=== PATIENT | male | born 1960 | race Caucasian/White ===

== ENCOUNTER 2020-01-06 18:05 | Outpatient (REF) | payer OTHER, SELFPAY ==
--- NOTE | 2020-01-06 18:15 | MR_ITS ---
EXAMINATION: BRAIN MRI WITHOUT CONTRAST. CLINICAL INFORMATION: Occipital pain. Decreased vision both sides. Tinnitus. COMPARISON: No relevant prior imaging. TECHNIQUE: Multiplanar MR imaging of the brain was performed without contrast. FINDINGS: There are scattered nonspecific foci of T2 FLAIR signal hyperintensity within the periventricular white matter. No acute territorial infarct. No pathological magnetic susceptibility artifact. Intracranial vascular flow voids are grossly maintained. There is no intracranial mass effect or midline shift. Lateral and third ventricles are proportionate to the subarachnoid spaces. No hydrocephalus. Midline structures including the cervicomedullary junction are normal. No acute bone marrow signal changes. There is no mastoid middle ear effusion. No active paranasal sinus disease. Globes and orbits are symmetric. IMPRESSION: There are a few scattered chronic small vessel ischemic changes within the periventricular white matter. No evidence of acute territorial infarct or hemorrhage.
== END 2020-01-06 18:06 | disposition home or self-care (01) ==
LOC: HO.MRI 18:05
PROVIDERS: Visit Provider Internal Medicine Geriatric Medicine
DX: G44.83 Primary cough headache (principal); Z82.49 Family history of ischemic heart disease and other diseases of the circulatory system
CPT/HCPCS: 70551

== ENCOUNTER 2020-06-16 15:23 | Outpatient (REF) | payer OTHER, SELFPAY ==
--- NOTE | ~2020-06-16 | MR_ITS ---
EXAMINATION: MR ANGIOGRAPHY BRAIN WITHOUT CONTRAST CLINICAL INFORMATION: Patient states left eye and occipital pain when coughing. Evaluate for aneurysm. COMPARISON: None TECHNIQUE: 3-D [id number] MR angiography of the intracranial circulation was done with multiplanar reformatted reconstructions. Technical note: Images were degraded by motion artifact, which limits detection of very small aneurysms. FINDINGS: Anterior circulation: There is marked tortuosity of the high C1 segments of both cervical ICAs which are only partially imaged. The petrous, cavernous, ophthalmic and supraclinoid segments of both ICAs are normal in caliber with no definite aneurysm identified within the limitations of the study. The A1 and A2 segments are patent and normal in caliber. The anterior communicating artery is not well visualized. The M1 and M2 segments are patent and normal in caliber. There is a normal appearance to the MCA bifurcations. The posterior communicating arteries are not visualized. No definite aneurysms are identified. Posterior circulation: The V4 segments of the vertebral arteries are normal in caliber. The origins of the posterior inferior cerebellar arteries are not clearly visualized. The basilar artery is normal in caliber and configuration. The superior cerebellar and posterior cerebral arteries are patent. No posterior circulation aneurysms are identified. MR/MR angio head wo con IMPRESSION: Slightly limited study as motion artifact resulted in some degradation of the images. Very small aneurysms can be obscured by motion and therefore the study is limited in this regard. Within these limitations, no definite intracranial saccular aneurysms are identified and there is no evidence for major branch segmental occlusion, significant focal stenosis or ectasia.
== END 2020-06-16 15:24 | disposition home or self-care (01) ==
LOC: HO.MRI 15:23
PROVIDERS: PCP Internal Medicine Geriatric Medicine; Visit Provider Internal Medicine Geriatric Medicine
DX: R51.9 Headache, unspecified (principal); Z82.49 Family history of ischemic heart disease and other diseases of the circulatory system
CPT/HCPCS: 70544

== ENCOUNTER 2020-10-14 15:37 | Outpatient (REF) | payer OTHER, SELFPAY ==
--- NOTE | ~2020-10-14 | US_ITS ---
EXAMINATION: US EXTRACRANIAL CAROTID DUPLEX, BILATERAL CLINICAL INFORMATION: Amaurosis fugax. COMPARISON: None TECHNIQUE: Real-time ultrasound and Doppler techniques (integrating B-mode 2-D vascular images, Doppler spectral analysis and color-flow Doppler imaging) were utilized to interrogate the extracranial carotid arteries, the vertebral arteries and proximal subclavian arteries bilaterally. The degree of stenosis is determined by criteria similar to NASCET. FINDINGS: Right Side: 1. There is soft atherosclerotic plaque seen in the bifurcation/proximal ICA region. 2. The common carotid artery PSV proximally is 112 cm/s and distally 122 cm/s. 3. The proximal internal carotid artery velocities are 40 cm/s systolic and 15 cm/s diastolic. 4. The proximal external carotid artery PSV is 63 cm/s. 5. The vertebral artery shows antegrade flow. 6. The subclavian artery waveforms are normal. Left Side: 1. There is soft atherosclerotic plaque seen in the bifurcation/proximal ICA region. 2. The common carotid artery PSV proximally is 145 cm/s and distally 108 cm/s. 3. The proximal internal carotid artery velocities are 82 cm/s systolic and 8 cm/s diastolic. 4. The proximal external carotid artery PSV is 133 cm/s. 5. The vertebral artery shows antegrade flow. 6. The subclavian artery waveforms are normal. US/US carotid duplex BI IMPRESSION: 1. RIGHT: No hemodynamically significant stenosis. 2. LEFT: No hemodynamically significant stenosis. 3. Normal antegrade flow seen in both vertebral arteries.
== END 2020-10-14 15:38 | disposition home or self-care (01) ==
LOC: HO.HMGCX 15:37
PROVIDERS: PCP Internal Medicine Geriatric Medicine; Visit Provider Internal Medicine Geriatric Medicine
DX: G45.3 Amaurosis fugax (principal)
CPT/HCPCS: 93880

== ENCOUNTER 2021-03-31 12:43 | Outpatient (REF) | payer OTHER, SELFPAY ==
--- NOTE | ~2021-03-31 | XR_ITS ---
EXAMINATION: XR CHEST CLINICAL INFORMATION: Persistent cough, recent Covid COMPARISON: None TECHNIQUE: 2 views of the chest were obtained. FINDINGS: No significant abnormality is noted involving the heart, lungs, mediastinum, bony thorax or soft tissues. XR/XR chest 2V IMPRESSION: Unremarkable chest exam.
== END 2021-03-31 12:44 | disposition home or self-care (01) ==
LOC: HO.XRAY 12:43
PROVIDERS: PCP Internal Medicine Geriatric Medicine; Visit Provider Family Medicine
DX: R05.9 Cough, unspecified (principal)
CPT/HCPCS: 71046

== ENCOUNTER 2021-12-21 14:56 | Outpatient (REF) | payer OTHER, SELFPAY ==
--- NOTE | ~2021-12-21 | US_ITS ---
EXAMINATION: US VENOUS WITH DOPPLER UPPER EXTREMITY, LEFT CLINICAL INFORMATION: Swelling. History of recent IV. COMPARISON: None TECHNIQUE: Ultrasound of the upper extremity is performed using compression sonography and color and pulse Doppler flow with assessment of augmentation of flow. There is also imaging and Doppler assessment of the jugular and subclavian veins. Spectral analysis with color-flow imaging is performed. Findings: The left internal jugular, subclavian, axillary, brachial and basilic veins are patent. The cephalic vein is enlarged. There is thrombus seen in the cephalic vein suggestive of superficial thrombophlebitis. US/US venous duplex UE LT IMPRESSION: No DVT demonstrated in the left upper arm. Superficial thrombophlebitis in the left cephalic vein. Findings were communicated to Dr. Burnett by the surgical technologist at the completion of the exam.
== END 2021-12-21 14:57 | disposition home or self-care (01) ==
LOC: HO.US 14:56
PROVIDERS: PCP Internal Medicine Geriatric Medicine; Visit Provider Internal Medicine Geriatric Medicine
DX: I82.622 Acute embolism and thrombosis of deep veins of left upper extremity (principal)
CPT/HCPCS: 93971

== ENCOUNTER 2022-01-11 15:26 | Outpatient (REF) | payer OTHER, SELFPAY ==
--- NOTE | ~2022-01-11 | US_ITS ---
EXAMINATION: US VENOUS WITH DOPPLER UPPER EXTREMITY, LEFT CLINICAL INFORMATION: Follow-up superficial thrombophlebitis in the left cephalic vein COMPARISON: None TECHNIQUE: Ultrasound of the upper extremity is performed using compression sonography and color and pulse Doppler flow with assessment of augmentation of flow. There is also imaging and Doppler assessment of the jugular and subclavian veins. Spectral analysis with color-flow imaging is performed. FINDINGS: The left internal jugular, subclavian, axillary, brachial, basilic and basilic veins are patent. There is no evidence of DVT. There is still evidence of occlusive thrombus seen in the cephalic vein suggestive of superficial thrombophlebitis not appreciably changed from 12/21/2021 exam. US/US venous duplex UE LT IMPRESSION: No DVT demonstrated in the left upper extremity. Superficial thrombophlebitis in the left cephalic vein similar to November 2021 exam.
== END 2022-01-11 15:27 | disposition home or self-care (01) ==
LOC: HO.US 15:26
PROVIDERS: Visit Provider Internal Medicine Geriatric Medicine
DX: I82.612 Acute embolism and thrombosis of superficial veins of left upper extremity (principal)
CPT/HCPCS: 93971

== ENCOUNTER 2022-01-26 14:20 | Outpatient (REF) | payer OTHER, SELFPAY ==
--- NOTE | ~2022-01-26 | US_ITS ---
EXAMINATION: US VENOUS WITH DOPPLER UPPER EXTREMITY, LEFT CLINICAL INFORMATION: History of thrombus within the cephalic vein COMPARISON: 01/11/2022 TECHNIQUE: Ultrasound of the upper extremity is performed using compression sonography and color and pulse Doppler flow with assessment of augmentation of flow. There is also imaging and Doppler assessment of the jugular and subclavian veins. Spectral analysis with color-flow imaging is performed. FINDINGS: Respiratory variation, normal compression, and augmented flow are noted throughout the upper extremity including the axillary, brachial, cubital, and radial and ulnar veins. There is normal flow in the internal jugular and subclavian veins. There is redemonstration of partially occlusive thrombus within the cephalic vein. This appears to be partially resolving compared to prior. US/US venous duplex UE LT IMPRESSION: 1. No DVT demonstrated in the left upper extremity. 2. Partially occlusive thrombus within the left cephalic vein. This appears partially resolving compared to prior.
== END 2022-01-26 14:21 | disposition home or self-care (01) ==
LOC: HO.US 14:20
PROVIDERS: Visit Provider Internal Medicine Geriatric Medicine
DX: I82.612 Acute embolism and thrombosis of superficial veins of left upper extremity (principal)
CPT/HCPCS: 93971

== ENCOUNTER 2022-03-29 13:53 | Outpatient (REF) | payer OTHER, SELFPAY ==
--- NOTE | ~2022-03-29 | US_ITS ---
EXAMINATION: US VENOUS WITH DOPPLER UPPER EXTREMITY, LEFT CLINICAL INFORMATION: Previous DVT in cephalic vein. COMPARISON: Ultrasound venous duplex left upper extremity 01/26/2022. TECHNIQUE: Ultrasound of the upper extremity is performed using compression sonography and color and pulse Doppler flow with assessment of augmentation of flow. There is also imaging and Doppler assessment of the jugular and subclavian veins. Spectral analysis with color-flow imaging is performed. FINDINGS: Respiratory variation, normal compression, and augmented flow are noted throughout the upper extremity including the axillary, brachial, cubital, and radial and ulnar veins. There is normal flow in the internal jugular and subclavian veins. There is a partially-occlusive thrombus in the left superficial cephalic vein which appears to be slowly resolving. If the patient's symptoms progress, a followup ultrasound in 5 -7 days might be of value to exclude proximal propagation from a nonvisualized distal arm vein. US/US venous duplex UE LT IMPRESSION: 1. No DVT demonstrated in the left upper extremity. 2. There is a partially-occlusive thrombus in the left superficial cephalic vein which appears to be slowly resolving.
== END 2022-03-29 13:54 | disposition home or self-care (01) ==
LOC: HO.US 13:53
PROVIDERS: Visit Provider Internal Medicine Geriatric Medicine
DX: I82.612 Acute embolism and thrombosis of superficial veins of left upper extremity (principal)
CPT/HCPCS: 93971

== ENCOUNTER 2022-08-28 11:21 | Day surgery (SDC) | payer OTHER, SELFPAY ==
--- NOTE | 2022-08-25 13:23 | P.CONAN_ITS ---
Documented by User: Anai Valdovinos NP 08/25/22 13:24 HPI - Anesthesia Eval Consult details Narrative: 61yo M for Colonoscopy Eliquis for hx DVT [facility] Past Medical History Medical History (Updated 05/18/22 @ 14:19 by Stacy Womack RN) BPH (benign prostatic hyperplasia) Hx of blood clots Surgical History Surgical History (Updated 05/18/22 @ 14:21 by Stacy Womack RN) History of total right knee replacement Hx of appendectomy Hx of colonoscopy Hx of inguinal hernia repair Hx of rotator cuff surgery Hx of tonsillectomy Social History Social History Patient Tobacco Use Status: Never used Tobacco Are you DNR?: No Advance Directives: No Advance Directives Information Provided: Yes Nutrition Risks: No Nutritional Risk Meds Allergies Allergy/AdvReac Type Severity Reaction Status Date / Time No Known Allergies Allergy Verified 05/18/22 14:22 Home Medications Medication Instructions Recorded Confirmed Last Taken Type apixaban 5 mg tablet (Eliquis) 1 tab PO 05/18/22 Unknown History finasteride 5 mg tablet 1 tab PO DAILY 05/18/22 05/18/22 Unknown History tamsulosin 0.4 mg capsule 1 cap PO DAILY 05/18/22 05/18/22 Unknown History Exam Exam Date and Time: August 25, 2022 1323 Assessment and Plan Assessment Anesthesia Assessment: Chart Reviewed Documented by User: Guerda Horta MD 08/28/22 13:41 [facility] Past Medical History Medical History (Updated 05/18/22 @ 14:19 by Stacy Womack RN) BPH (benign prostatic hyperplasia) Hx of blood clots Family History Family history of problems with anesthesia: No Surgical History Surgical History (Updated 05/18/22 @ 14:21 by Stacy Womack RN) History of total right knee replacement Hx of appendectomy Hx of colonoscopy Hx of inguinal hernia repair Hx of rotator cuff surgery Hx of tonsillectomy History of Problems with Anesthesia: No Social History Social History Patient Tobacco Use Status: Never used Tobacco Are you DNR?: No Advance Directives: No Advance Directives Information Provided: Yes Nutrition Risks: No Nutritional Risk Meds Allergies Allergy/AdvReac Type Severity Reaction Status Date / Time No Known Allergies Allergy Verified 05/18/22 14:22 Home Medications Medication Instructions Recorded Confirmed Last Taken Type apixaban 5 mg tablet (Eliquis) 1 tab PO 05/18/22 Unknown History finasteride 5 mg tablet 1 tab PO DAILY 05/18/22 05/18/22 Unknown History tamsulosin 0.4 mg capsule 1 cap PO DAILY 05/18/22 05/18/22 Unknown History Exam Airway Mallampati Class: I TM Dist: >3cm Neck ROM: Full Loose/Missing/Broken Teeth: No Heart: rr Lungs: cta Assessment and Plan Assessment Anesthesia Assessment: Anesthesia Plan Discussed and Chart Reviewed Final Anesthetic Review Family History of Problems with Anesthesia: No History of Problems with Anesthesia: No NPO: Yes ASA Class: II Final Preanesthetic Review: No Changes in Pt Med Stat, Meds/Allgs Chart Reviewed, Consent Obtained/Reviewed and Anes Risks/Benef Reviewed Patient Risk: Low Procedure Risk: Low Anesthetic Plan Anesthetic Plan: MAC: Disposition: Standard PACU
--- OUTSIDE RECORDS SUMMARY | 2022-08-28 11:23 | XMS_ITS | Continuity of Care Document ---
Author Name Unknown Organization Wound Care Address [address] [place] [address]- Care Team Providers Care Baggage Security Checker Name Role Phone Name Matthew COTA Primary Care Physician [phone] Encounter [facility] ACCT R [id number] Date(s): 04/21/19 - 05/23/19 Wound Care [address] [place] [address]- [facility] Attending Physician: Nabeel Newell MD Admitting Physician: Nabeel Newell MD Referring Physician: Name Matthew COTA Allergies, Adverse Reactions, Alerts Substance Reaction Severity Status penicillins Active Grass Active Nuts 1 brazillian nuts Active Seeds pumpkin seeds Active Other Food Allergy eggplant Active 1brazillian nuts Immunizations Given and Recorded Vaccine Date Status Refusal Reason Meningococcal Conjugate Vaccine 1 11/07/05 Given Yellow Fever Vaccine 11/01/05 Given Poliovirus Vaccine, Inactivated 11/01/05 Given Hepatitis A Vaccine (oldterm) 2 11/01/05 Given Typhoid Vaccine, Inactivated 11/01/05 Given 1Admin Note: menactra 2Result Comment: incorrect vacciine Medications 2 cloth tape 2 cloth tape, See Instructions, # 1 each, Refills 12, Tot. Refills 12, Maintenance, daily dressingchanges bilat arms, 03/12/19 9:59:00 EST, Compound Start Date: 03/12/19 Status: Ordered acetaminophen 325 mg oral tablet 650 mg, By Mouth, Every 6 hours, Refills 0, Maintenance, 06/10/18 13:22:29 EDT Start Date: 06/10/18 Status: Ordered aspirin 162.5 mg oral capsule, extended release = 325 mg, By Mouth, 2 times a day, # 42 tablet, 0 Refills, Maintenance, 06/14/18 7:36:11 EDT, ER Capsule Start Date: 06/14/18 Stop Date: 07/05/18 Status: Ordered aspirin 325 mg oral delayed release tablet 325 mg, 1, tablet, By Mouth, 2 times a day, # 42 tablet, Refills 0, Tot. Refills 0, Maintenance, 06/14/18 7:37:51 EDT, Print Requisition Start Date: 06/14/18 Stop Date: 07/05/18 Status: Ordered Aspirin Tablet 325 mg, By Mouth, 2 times a day, Refills 0, Maintenance, 06/10/18 13:24:33 EDT Start Date: 06/10/18 Status: Ordered Baclofen By Mouth, 3 times a day, 0 Refills, Maintenance, 06/07/18 8:09:51 EDT Start Date: 06/07/18 Status: Ordered celecoxib 200 mg oral capsule = 200 mg, By Mouth, Daily, 0 Refills, Maintenance, 06/10/18 13:23:48 EDT, Capsule Start Date: 06/10/18 Status: Ordered docusate sodium 100 mg oral capsule 100 mg, 1, capsule, By Mouth, 2 times a day, Refills 0, Maintenance, 06/10/18 13:23:50 EDT Start Date: 06/10/18 Status: Ordered docusate sodium 100 mg oral capsule 100 mg, 1, capsule, By Mouth, 2 times a day, # 60 capsule, Refills 0, Tot. Refills 0, Maintenance, 06/14/18 7:39:48 EDT, Print Requisition Start Date: 06/14/18 Status: Ordered finasteride 5 mg oral tablet 1 tablet = 5 mg, By Mouth, Daily, # 7 tablet, 0 Refills, Maintenance, 06/14/18 8:08:51 EDT, Tablet Start Date: 06/14/18 Stop Date: 06/21/18 Status: Ordered Fish Oil By Mouth, 0 Refills, Maintenance, 06/07/18 8:10:54 EDT Start Date: 06/07/18 Status: Ordered Gauze Pad (4 X 4) See Instructions, # 1 pack/packet, Refills 12, Tot. Refills 12, Maintenance, daily dressing changesbilat arms, 03/12/19 9:59:00 EST, Compound Start Date: 03/12/19 Status: Ordered Gauze Roll (4 ) See Instructions, # 1 pack/packet, Refills 12, Tot. Refills 12, Maintenance, daily dressing changesbilat arms, 03/12/19 9:59:00 EST, Compound Start Date: 03/12/19 Status: Ordered Maalox Plus Liquid 30 mL, By Mouth, Every 4 hours, PRN Other, Heartburn, 0 Refills, Maintenance, 06/10/18 13:23:36 EDT, Suspension Start Date: 06/10/18 Status: Ordered Milk of Magnesia Liquid 30 mL, By Mouth, Daily, PRN Constipation, 0 Refills, Maintenance, 06/10/18 13:24:02 EDT, Suspension Start Date: 06/10/18 Status: Ordered MiraLax Powder 1 pack/packet = 17 Gm, By Mouth, Daily, 0 Refills, Maintenance, 06/10/18 13:24:12 EDT, Powder Start Date: 06/10/18 Status: Ordered pantoprazole 40 mg oral delayed release tablet 1 tablet = 40 mg, By Mouth, Daily, # 21 tablet, 0 Refills, Maintenance, 06/14/18 7:41:00 EDT, EC Tablet Start Date: 06/14/18 Stop Date: 07/05/18 Status: Ordered Proscar = 5 mg, By Mouth, Daily, 0 Refills, Maintenance, 11/20/17 8:36:30 EDT Start Date: 11/20/17 Status: Ordered rosuvastatin 10 mg oral tablet 1 tablet = 10 mg, By Mouth, Daily, # 30 tablet, 0 Refills, Maintenance, 11/20/17 8:15:41 EDT, Tablet Start Date: 11/20/17 Status: Ordered saccharomyces boulardii lyo 250 mg oral capsule = 250 mg, By Mouth, 2 times a day, 0 Refills, Maintenance, 06/14/18 7:32:26 EDT, Capsule Start Date: 06/14/18 Status: Ordered senna 187 mg oral tablet 1 tablet = 8.6 mg, By Mouth, Daily at bedtime, 0 Refills, Maintenance, 06/10/18 13:24:14 EDT, Tablet Start Date: 06/10/18 Status: Ordered tamsulosin 0.4 mg oral capsule 0.4 mg, 1, capsule, By Mouth, Daily, # 30 capsule, Refills 0, Maintenance, 11/20/17 8:15:31 EDT Start Date: 11/20/17 Status: Ordered tamsulosin 0.4 mg oral capsule 0.4 mg, By Mouth, Daily, # 7 capsule, Refills 0, Tot. Refills 0, Maintenance, 06/14/18 8:08:27 EDT,Print Requisition Start Date: 06/14/18 Stop Date: 06/21/18 Status: Ordered Social History Social History Type Response Smoking Status Never (less than 100 in lifetime) entered on: 07/01/18 Sex
--- OUTSIDE RECORDS SUMMARY | 2022-08-28 11:23 | XMS_ITS ---
Author Name Luis Joce Address [address] [place] [address] Organization [facility] Address [address] [place] [address] Care Team Providers Care Indoor Plant Technician Name Role Phone Joce Smith Unavailable [phone] PROBLEMS Type Condition ICD9-CM Code [id number] Code Onset Dates Condition Status SNOMED Code Problem Colon cancer screening Z12.11 Active 233410167 Problem History of colon polyps Z86.010 Active 963002176 Problem Abdominal pain, generalized R10.84 Active [id number] ALLERGIES No Known Allergies ENCOUNTERS Encounter Location Date Diagnosis [facility] [address] [place], [place] [id number] Aug, [facility] [address] [place] [phone] Aug, [facility] [address] [place] [phone] July, [facility] [address] [place] [phone] Jun, [facility] [address] [place] [phone] May, [facility] [address] [place] [phone] Apr, [facility] [address] [place] [phone] Apr, [facility] [address] [place] [phone] Mar, [facility] [address] [place] [phone] 11 Mar, 2022 [facility] [address] [place] [phone] 11 Mar, 2022 Colon cancer screening Z12.11 ; Abdominal pain, generalized R10.84 and History of colon polyps Z86.010 IMMUNIZATIONS No Known Immunizations SOCIAL HISTORY Qualifiers Date Never Smoker REASON FOR REFERRAL FUNCTIONAL STATUS PLAN OF CARE Activity Details VITAL SIGNS Weight 190 lbs 2022-04-05 Height 67.5 in 2022-04-05 BMI 29.32 kg/m2 2022-04-05 Temperature 97.8 degrees Fahrenheit Blood pressure systolic 000 mm Hg Blood pressure diastolic 00 mm Hg 2022-03 MEDICATIONS Medication Instructions Dosage Frequency Start Date End Date Duration Status Tamsulosin HCl 0.4 MG TAKE 1 CAPSULE BY MOUTH EVERY DAY 1/2 HOUR FOLLOWING THE SAME MEAL EACH DAY 90 Active Hyoscyamine Sulfate 0.125 MG Sublingual Every 4 to 6 hours as needed for abdominal cramps/discomfor t 1 or 2 12 Mar, 2022 30 days Active Eliquis 5 MG TAKE 1 TABLET BY MOUTH IN THE MORNING AND AT BEDTIME 30 Active Finasteride 5 MG TAKE 1 TABLET BY MOUTH EVERY DAY 30 Active PROCEDURES Procedure Date Ordered Result Body Site BP SCR NOT PRFRM REC REASON NOS Apr 05, 2022 TOBACCO NON-USER Apr 05, 2022 DOC MEDS VERIFIED W/PT OR RE Apr 05, 2022 COLORECTAL CA SCREEN DOC REV Apr 05, 2022 RESULTS No Results REASON FOR VISIT screening, hx polyps, needs to enroll in [facility], has health safety net, colon screening, history of polyps, patient has partial health safety net, no has health safety net, screening,hx polyps, COVID , new insurance ?, Patient presents today for abdominal pain. Insurance Providers Health Insurance Type Health Plan Insurance Address Health Plan Insurance Phone Health Plan Insurance Name Health Plan Coverage Dates Member ID Patient Relationship to Subscriber Patient Address Patient Phone Patient Name Patient Date of Subscriber ID Subscriber Name Subscriber Date of Group No [facility] [employer] Medical Instrument [facility] [address] [facility] [place] [id number] [facility] self GIGI BELCASTR O [id number] [employer] [place] [address] [place] [address] [place] self GIGI Daily [id number] [facility] [place] [address] [facility] self GIGI Daily [id number] [facility] [address] [address] [facility] [place] [address] [facility] self GIGI Daily [id number]
--- OUTSIDE RECORDS SUMMARY | 2022-08-28 11:23 | XMS_ITS | Continuity of Care Document ---
Author Name Unknown Organization Wound Care Address [address] [place] [address]- Care Team Providers Care Resolution Analyst Name Role Phone Name Matthew COTA Primary Care Physician Encounter [facility] ACCT R [id number] Date(s): 03/15/19 - 04/20/19 Wound Care [address] [place] [address]- [facility] Attending Physician: Nabeel Newell MD [...] EDT, Tablet Start Date: 06/10/18 Status: Ordered silver sulfADIAZINE 1% topical cream 1 application, Topically, Daily, for 30 days, apply to levy on R and L arms, # 400 Gm, 1 Refills, Acute 05/11/19 10:03:00 EST, 03/12/19 10:03:00 EST, Cream, [facility]/pharmacy #[id number], 1 application Topically Daily,x30 days,Instr:apply to levy on R and L ar... Start Date: 03/12/19 Stop Date: 05/11/19 Status: Ordered tamsulosin 0.4 mg oral capsule [...]
--- OUTSIDE RECORDS SUMMARY | 2022-08-28 11:23 | XMS_ITS | Continuity of Care Document ---
Author Name Unknown Organization [facility] Infectious Disease Address [address] [place] [address]- Care Team Providers Care Technical Education Teacher Name Role Phone Name Matthew COTA Primary Care Physician Encounter [facility] Date(s): 05/06/20 - 06/05/20 [facility] Infectious Disease [address] [place] [id number] Allergies, Adverse Reactions, Alerts Substance Reaction Severity [...] Note: menactra 2Result Comment: incorrect vacciine Medications finasteride 5 mg oral tablet 0 Refills, Maintenance, 03/08/20 8:10:00 EST, Partial fill upon patient request if the prescriptionis for a schedule II opioid drug. Start Date: 03/08/20 Status: Ordered rosuvastatin 10 mg oral tablet 0 Refills, Maintenance, 03/08/20 8:10:00 EST, Partial fill upon patient request if the prescriptionis for a schedule II opioid drug. Start Date: 03/08/20 Status: Ordered tamsulosin 0.4 mg oral capsule Refills 0, Maintenance, 03/08/20 8:10:00 EST, Partial fill upon patient request if the prescriptionis for a schedule II opioid drug. Start Date: 03/08/20 Status: Ordered Problem List Condition Effective Dates Status Health Status Inform ant Cough(Confirmed) Active Social History Social History Type Response Smoking Status Never (less than 100 in lifetime) entered on: 07/01/18 Sex Male
--- OUTSIDE RECORDS SUMMARY | 2022-08-28 11:23 | XMS_ITS | Continuity of Care Document ---
Author Name Unknown Organization [facility] ter Address [address] [place] [address]- Care Team Providers Care Blocker Automatic Name Role Phone Name Matthew COTA Primary Care Physician Encounter [facility] [id number] Date(s): 09/24/21 - 10/30/[address] [address] Attending Physician: Darron Ma MD Admitting Physician: Darron Ma MD Referring Physician: Pooja Melissa MD, [facility] Allergies, Adverse Reactions, Alerts Substance Reaction Severity Status penicillins Active Seeds pumpkin seeds Active Other Food Allergy eggplant Active Grass Active Nuts 1 brazillian nuts Active 1brazillian nuts Immunizations Given and Recorded Vaccine Date Status Refusal Reason Meningococcal Conjugate Vaccine 1 11/07/05 Given Yellow Fever Vaccine 11/01/05 Given Poliovirus Vaccine, Inactivated 11/01/05 Given Hepatitis A Vaccine (oldterm) 2 11/01/05 Given Typhoid Vaccine, Inactivated 11/01/05 Given 1Admin Note: menactra 2Result Comment: incorrect vacciine Medications Aerochamber See Instructions, # 1 each, Refills 0, Tot. Refills 0, Maintenance, Use with Flovent MDI inhaler, 09/02/21 15:26:00 EDT, Supply, 167, cm, 08/08/21 14:43:00 EDT, Height Start Date: 09/02/21 Status: Ordered finasteride 5 mg oral tablet 0 Refills, Maintenance, 03/08/20 8:10:00 EST, Partial fill upon patient request if the prescriptionis for a schedule II opioid drug. Start Date: 03/08/20 Status: Ordered Flovent HFA 110 mcg/inh inhalation aerosol 2 puffs, Inhalation, 2 times a day, use with spacer chamber rinse mouth and throat after use, [id number], # 1 each, 0 Refills, Maintenance, 08/31/21 12:46:00 EDT, Aerosol, [facility]/pharmacy #[id number], Partial fill upon patient request if the prescription is for a... Start Date: 08/31/21 Status: Ordered rosuvastatin 10 mg oral tablet 0 Refills, Maintenance, 03/08/20 8:10:00 EST, Partial fill upon patient request if the prescriptionis for a schedule II opioid drug. Start Date: 03/08/20 Status: Ordered Spacer Spacer, See Instructions, # 1 each, Refills 0, Tot. Refills 0, Maintenance, Spacer, 09/05/21 8:37:00 EDT, Supply, 167, cm, 08/08/21 14:43:00 EDT, Height Start Date: 09/05/21 Status: Ordered tamsulosin 0.4 mg oral capsule Refills 0, Maintenance, 03/08/20 8:10:00 EST, Partial fill upon patient request if the prescriptionis for a schedule II opioid drug. Start Date: 03/08/20 Status: Ordered Problem List Condition Effective Dates Status Health Status Inform ant Cough(Confirmed) Active Obese class II(Confirmed) Active Social History Social History Type Response Smoking Status Never (less than 100 in lifetime) entered on: 07/01/18 Sex Male
--- OUTSIDE RECORDS SUMMARY | 2022-08-28 11:23 | XMS_ITS | Continuity of Care Document ---
Author Name Unknown Organization [facility] ter Address [address] [place] [address]- Care Team Providers Care Floor Surfacer Name Role Phone Name Matthew COTA Primary Care Physician [phone] [place] [facility] [place] [id number] Date(s): 09/01/21 - 10/23/[address] [address] Attending Physician: Darron Ma MD Admitting Physician: Darron Ma MD Referring Physician: Pooja Melissa MD, [facility] Allergies, Adverse Reactions, Alerts Substance Reaction Severity [...] 0 Refills, Maintenance, 08/31/21 12:46:00 EDT, Aerosol, [id number], Partial fill upon patient request if [...]
--- OUTSIDE RECORDS SUMMARY | 2022-08-28 11:23 | XMS_ITS | Continuity of Care Document ---
Author Name Unknown Organization [facility] Address [address] [place] [address]- Care Team Providers Care Alcoholism Worker Name Role Phone Name Matthew COTA Primary Care Physician [place] [facility] [id number] Date(s): 04/23/19 - 05/03/19 [facility] [address] [place] [address] [facility] Attending Physician: Admtr, Bruno8 Admitting Physician: AdmtrMathieu Referring Physician: Admtr, Ar8 Allergies, Adverse Reactions, Alerts Substance Reaction Severity [...] 05/11/19 10:03:00 EST, 03/12/19 10:03:00 EST, [place], [facility]/pharmacy #[id number], 1 application Topically Daily,x30 days,Instr:apply to [...]
--- OUTSIDE RECORDS SUMMARY | 2022-08-28 11:23 | XMS_ITS | Continuity of Care Document ---
Author Name Unknown Organization [facility] Pulmonary edicine Address [address] [place] [address]- Care Team Providers Care Cell Attendant Helper Name Role Phone Name Matthew COTA Primary Care Physician [phone] Encounter [facility] Date(s): 08/31/21 - 09/30/21 [facility] Pulmonary Medicine [address] [place] [address] Allergies, Adverse Reactions, Alerts Substance Reaction Severity [...]
--- OUTSIDE RECORDS SUMMARY | 2022-08-28 11:23 | XMS_ITS | Continuity of Care Document ---
Author Name Unknown Organization [facility] Pulmonary M edicine Address [address] [place] [address]- Care Team Providers Care Boom Master Name Role Phone Name Matthew COTA Primary Care Physician [place] [facility] [place] Date(s): 09/01/21 - 10/01/21 [facility] Pulmonary Medicine [address] [place] [id number] Allergies, Adverse Reactions, Alerts Substance [...]
--- OUTSIDE RECORDS SUMMARY | 2022-08-28 11:23 | XMS_ITS | Continuity of Care Document ---
Author Name Unknown Organization [facility] Care Address [address] [place] [address]- Care Team Providers Care Equal Opportunity Director Name Role Phone Name Matthew COTA Primary Care Physician [phone] En[place] [facility] [facility] [id number] Date(s): 03/21/19 - 03/31/19 Wound Care [address] [place] [address]- [facility] Attending Physician: Admtr, Mathieu Admitting Physician: AdmtrMathieu Referring Physician: Admtr, Ar8 [...] 05/11/19 10:03:00 EST, 03/12/19 10:03:00 EST, [place], [facility]/pharmacy #[id number], 1 application Topically Daily,x30 [...]
--- OUTSIDE RECORDS SUMMARY | 2022-08-28 11:23 | XMS_ITS | Continuity of Care Document ---
Author Name Unknown Organization [facility] ter Address [address] [place] [address]- Care Team Providers Care Concrete Engineer Name Role Phone Name Matthew COTA Primary Care Physician En[place] [facility] [place] [facility] R [id number] Date(s): 10/29/21 - 12/04/[address] [address] Attending Physician: Jovan Alicea MD Admitting Physician: Jovan Alicea MD Referring Physician: Jovan Alicea MD Allergies, Adverse Reactions, Alerts Substance Reaction Severity Status penicillins Active Grass Active Nuts 1 brazillian nuts Active Other Food Allergy eggplant Active Seeds pumpkin seeds Active 1brazillian nuts Immunizations Given and Recorded [...] 0 Refills, Maintenance, 08/31/21 12:46:00 EDT, Aerosol, [facility]/pharmacy #[id number], Partial fill upon patient request [...] in lifetime) entered on: 07/01/18 Sex Male Care Team Personnel Name: Matthew Burnett MD Address: [address] [place] [address]
--- OUTSIDE RECORDS SUMMARY | 2022-08-28 11:23 | XMS_ITS | Continuity of Care Document ---
Author Name Unknown Organization [facility] Pulmonary M edicine Address [address] [place] [address]- Care Team Providers Care Master [employer] Name Role Phone Name Matthew COTA Primary Care Physician En[place] [facility] Date(s): 02/13/22 - 03/15/22 [facility] [address] [place] [id number] Attending Physician: Admtr, Ar8 Admitting Physician: Admtr, Ar8 Referring Physician: Admtr, Ar8 Allergies, Adverse Reactions, [...] opioid drug. Start Date: 03/08/20 Status: Ordered Flonase 50 mcg/inh nasal spray 1 sprays, Nares, Both, 2 times a day, # 16 Gm, 11 Refills, Maintenance, 02/13/22 14:15:00 EST, [place], [facility]/pharmacy #[id number], Partial fill upon patient request if the prescription is for a schedule II opioid drug., 1 sprays Nares, Both 2 times a day, 169,... Start Date: 02/13/22 Status: Ordered Flovent HFA 110 mcg/inh inhalation [...] Date: 03/08/20 Status: Ordered Problem List Condition Confirmation Course Effective Dates Status Health [facility] Informant Cough Confirmed Active Obese class I Confirmed Active Social History Social History Type Response Smoking Status Never (less than 100 in lifetime) entered on: 07/01/18 Sex Male Patient Care team information Care Team Personnel Name: Nickolas An RN Position: S RN Member Role: Primary Care Nurse Name: Darlene Brennan RN Position: S RN Member Role: Primary Care Nurse Name: Cherelle Suarez RN Position: S RN Member Role: Primary Care Nurse Name: Matthew Burnett MD Position: S Outreach Member Role: PCP Address: Address: [address] [place] [address] Name: Sandi Mackenzie RN Position: [facility] RN Member Role: Primary Care Nurse Care Team Related Persons Name: JIE CABRALES Name: HOLLY VOGT Address: [place] [address]
[2022-08-28 11:33] VITALS: BMI 29.3
[2022-08-28 11:53] VITALS: BP 125/72; PULSE 82; RESP 16; TEMP 36.7; O2SAT 97
[2022-08-28] MEDS: Gentamicin Sulfate/NaCl 80 MG/100 ML PIGGYBACK 100 MG IV (12:01)
[2022-08-28] MEDS: Lactated Ringers 1,000 ML 100 ML IVCONT (12:37)
[2022-08-28] MEDS: Ampicillin Sodium 2 GM in 0.9 % Sodium Chloride 100 ML IV (12:37)
--- NOTE | 2022-08-28 13:41 | P.CONAN_ITS ---
HPI - Anesthesia Eval Consult details Narrative: screening [facility] Past Medical History Medical History (Updated 05/18/22 @ 14:19 by Stacy Womack RN) BPH (benign prostatic hyperplasia) Hx of blood clots Family History Family history of problems with anesthesia: No Surgical History Surgical History (Updated 05/18/22 @ 14:21 by Stacy Womack RN) History of total right knee replacement Hx of appendectomy Hx of colonoscopy Hx of inguinal hernia repair Hx of rotator cuff surgery Hx of tonsillectomy History of Problems with Anesthesia: No Social History Social History Patient Tobacco Use Status: Never used Tobacco Are you DNR?: No Advance Directives: No Advance Directives Information Provided: Yes Nutrition Risks: No Nutritional Risk Meds Allergies Allergy/AdvReac Type Severity Reaction Status Date / Time No Known Allergies Allergy Verified 05/18/22 14:22 Active Medications: Current Medications Lactated Ringer's (Lr) 1,000 mls @ 100 mls/hr IVCONT .Q10H ESPINOZA Last Admin: 08/28/22 12:37 Dose: 100 mls/hr Sodium Biphosphate/Sodium Phosphate (Sodium Phosphate,Beadle-Dibasic 133 Ml Enema) 133 ml IA ONCE PRN PRN Reason: Poor Colonoscopy Prep Results Sodium Biphosphate/Sodium Phosphate (Sodium Phosphate,Beadle-Dibasic 133 Ml Enema) 133 ml IA ONCE PRN PRN Reason: Poor Colonoscopy Prep Results Home Medications Medication Instructions Recorded Confirmed Last Taken Type apixaban 5 mg tablet (Eliquis) 1 tab PO 05/18/22 Unknown History finasteride 5 mg tablet 1 tab PO DAILY 05/18/22 05/18/22 Unknown History tamsulosin 0.4 mg capsule 1 cap PO DAILY 05/18/22 05/18/22 Unknown History Exam Exam Date and Time: August 28, 2022 134 Height,Weight and Vital Signs: Height 5 ft 7.5 in Weight 86.183 kg Last Vital Signs Temp 98.1 F 08/28/22 11:53 Pulse 82 08/28/22 11:53 Resp 16 08/28/22 11:53 BP 125/72 08/28/22 11:53 Pulse Ox 97 08/28/22 11:53 O2 Del Method Room Air 08/28/22 11:53 Airway Mallampati Class: II TM Dist: >3cm Neck ROM: Full Loose/Missing/Broken Teeth: No Heart: rr Lungs: cta Assessment and Plan Final Anesthetic Review Family History of Problems with Anesthesia: No History of Problems with Anesthesia: No NPO: Yes ASA Class: II Final Preanesthetic Review: No Changes in Pt Med Stat, Meds/Allgs Chart Reviewed, Consent Obtained/Reviewed and Anes Risks/Benef Reviewed Patient Risk: Low Procedure Risk: Low Anesthetic Plan Anesthetic Plan: MAC: Disposition: Standard PACU
--- NOTE | 2022-08-28 15:14 | PM.OP ---
Brief Operative Note Date of Service: 08/28/22 Pre-op diagnosis: Screening Post-op diagnosis: other (Polyps) Procedure: Colonoscopy to the cecum and TI with bx/removal of cecal polyp, and hot snare polypectomy in rectum Surgeon: Joce Smith Anesthesia: MAC Was an Bail Attacher used for this Procedure?: No Estimated blood loss (mL): 2.0 Pathology: other (A. Cecal polyp B. Rectal polyp) Condition: stable Disposition: PACU
[2022-08-28 15:15] VITALS: BP 96/45; PULSE 91; RESP 18; TEMP 36.7; O2SAT 93
[2022-08-28 15:30] VITALS: BP 119/81; PULSE 73; RESP 18; TEMP 36.7; O2SAT 97
--- NOTE | 2022-08-29 01:40 | OP_ITS ---
DATE OF SERVICE: 08/28/2022 SURGEON: Joce Smith MD INDICATIONS: The patient presents for evaluation of colorectal cancer screening and personal history of colon polyps. Full consent was obtained from him for this, including risks of bleeding and perforation. PREOPERATIVE DIAGNOSIS: POSTOPERATIVE DIAGNOSIS: PROCEDURE PERFORMED: Colonoscopy to the cecum and terminal ileum with biopsy and removal of polyp and hot snare polypectomy. ESTIMATED BLOOD LOSS: COMPLICATIONS: ANESTHESIA: Medication used: Monitored anesthesia care. ASSISTANTS: SPECIMENS: PREOPERATIVE DIAGNOSES: Colorectal cancer screening and personal history of colon polyps. POSTOPERATIVE DIAGNOSES: Colorectal cancer screening, personal history of colon polyps, diverticulosis, and internal hemorrhoids. DESCRIPTION OF PROCEDURE: The patient was placed in the left lateral decubitus position. The digital rectal exam revealed no abnormalities. The Olympus video pediatric colonoscope was entered into the rectum and advanced easily to the cecum. Once in the cecum, I did identify cecal pouch with appendiceal orifice and a normal-appearing ileocecal valve. The terminal ileum was cannulated and appeared normal. The scope was withdrawn back in the colon. The entire cecum and ileocecal valve were well visualized and appeared normal other than an approximately 4 mm polyp in the cecum, which was biopsied and completely removed with the cold biopsy forceps. The scope was then slowly withdrawn assessing all mucosal surfaces carefully. Preparation was excellent. In the mid-rectum was an approximately 8-10 mm grossly adenomatous polyp, which was removed by hot snare polypectomy and recovered by suction. The polypectomy site appeared clean without any sign of residual polyp or bleeding. I did not visualize any other polyps, colitis, nor angiodysplasia. There was a mild amount of sigmoid diverticulosis. In the rectum, scope was retroflexed visualizing internal hemorrhoids. The scope was straightened and withdrawn from the patient. He tolerated the procedure well and was returned to the recovery area in stable condition. IMPRESSION: 1. Colon polyps. 2. Diverticulosis. 3. Internal hemorrhoids. PLAN: The results of the pathology will be checked. I would recommend a repeat colonoscopy in 5 years. He was advised not to use any aspirin and NSAIDs for 1 week. He will otherwise see me again on a p.r.n. basis. MD CARL Hoffman/TIA / [id number] DEONDRE
== END 2022-08-28 16:10 | disposition home or self-care (01) ==
PROVIDERS: PCP Internal Medicine Geriatric Medicine; Visit Provider Internal Medicine
PROC: 0DJD8ZZ Inspection of Lower Intestinal Tract, Via Natural or Artificial Opening Endoscopic (ICD-10-PCS; CPT 45378; principal; 2022-08-28 13:00)
DX: Z12.11 Encounter for screening for malignant neoplasm of colon (principal); Z86.010 Personal history of colon polyps; D12.0 Benign neoplasm of cecum; D12.8 Benign neoplasm of rectum; K57.30 Diverticulosis of large intestine without perforation or abscess without bleeding; K64.8 Other hemorrhoids; N40.0 Benign prostatic hyperplasia without lower urinary tract symptoms; Z86.718 Personal history of other venous thrombosis and embolism; Z79.01 Long term (current) use of anticoagulants; Z79.899 Other long term (current) drug therapy; Z98.890 Other specified postprocedural states
CPT/HCPCS: 45385; 45380; 88305; J0290; J1580

== ENCOUNTER 2023-05-04 12:14 | Outpatient (REF) | payer OTHER, SELFPAY ==
--- NOTE | ~2023-05-04 | XR_ITS ---
EXAMINATION: XR FINGER, RIGHT CLINICAL INFORMATION: Right ring finger, fourth digit injury . COMPARISON: None available. TECHNIQUE: 3 views of the right fourth digit. FINDINGS: Severe degenerative changes in the first carpometacarpal and metacarpophalangeal joints with joint space narrowing, hypertrophic change and remodeling of subjacent articular surfaces. Degenerative changes with hypertrophic change in scattered IP joints. There is a displaced intra-articular avulsion fracture at the dorsal aspect of the base of the distal tuft of the fourth digit with soft tissue swelling. XR/XR finger RT min 2V IMPRESSION: 1. Displaced intra-articular avulsion fracture at the dorsal aspect of the base of the distal tuft of the fourth digit with soft tissue swelling. 2. Severe degenerative changes in the first carpometacarpal and metacarpophalangeal joints. This study was presented today 05/07/2023 at 2:20 PM for interpretation. PSA staff will provide results to referring provider at this time.
--- NOTE | ~2023-05-04 | XR_ITS ---
EXAMINATION: XR TEMPOROMANDIBULAR JOINT, BILATERAL CLINICAL INFORMATION: Temporomandibular joint/mandibular pain. Injury. COMPARISON: None available. TECHNIQUE: Abida as well as lateral open and closed mouth views of the bilateral temporomandibular joint. FINDINGS: There are no fractures or dislocations. No bone, joint or soft tissue abnormality is demonstrated. Normal anterior translation of the mandibular condyles and open-mouth imaging. The visualized paranasal sinuses and mastoid air cells appear clear. No abnormal soft tissue calcification. XR/XR TMJ BI IMPRESSION: No acute fracture or dislocation. Normal anterior translation of the mandibular condyles.
== END 2023-05-04 12:15 | disposition home or self-care (01) ==
LOC: HO.XRAY 12:14
PROVIDERS: Absent Provider Internal Medicine Geriatric Medicine; PCP Internal Medicine Geriatric Medicine; Visit Provider Family Medicine
DX: M79.644 Pain in right finger(s) (principal); R68.84 Jaw pain
CPT/HCPCS: 70330; 73140

== ENCOUNTER 2024-04-30 07:34 | Outpatient (REF) | payer OTHER, SELFPAY ==
--- OUTSIDE RECORDS SUMMARY | 2024-04-30 07:36 | XMS_ITS | Encounter Summary ---
Author Organization [employer] [facility] Address [address] [place] [address] [address] [place] [address] Care Team Providers Care Gas Plant Worker Name Role Phone Name, Matthew COTA Primary Care Provider [phone] Encounter Details Date Type Department Care Team ([facility] Contact Info) Description 03/28/2022 Abstract [facility] MEDICINE [address] [place] [phone] Name, MD Matthew [address] [place] [id number] Social History Tobacco Use Types Packs/Day Years Used Date Smoking Tobacco: Never Assessed Sex and Gender Information Value Date Recorded Sex Assigned at Male 01/23/2022 10:35 AM EDT Legal Sex Male 10:35 AM EDT Gender Identity Male 01/23/2022 10:35 AM EDT Sexual Orientation Straight 01/23/2022 10 :35 AM EDT COVID-19 Exposure Response Date Recorded In the last 10 days, have yo u been in contact with someone who was confirmed or suspected to have Coronavirus/COVID-19? No / Unsure 03/28/2022 8:41 AM EST documented as of this encounter Plan of Treatment Upcoming Encounters Date Type Department Care Team (Late st Contact Info) Description 05/08/2024 2:00 PM EST Clinical Support [facility] MEDICINE [address] [place] [address] [phone] documented as of this encounter Visit Diagnoses Not on filedocumented in this encounter Care Teams Gas Plant Worker Relationship Specialty Start Date End Date Name, MD Matthew [address] [place] [phone] PCP - General Family Medicine 10/21/18 documented as of this encounter
--- OUTSIDE RECORDS SUMMARY | 2024-04-30 07:36 | XMS_ITS | Encounter Summary ---
Author Organization [employer] Address [address] [facility] [address] [place] [address] Care Team Providers Care Agricultural Engineering Technician Name Role Phone Name, Matthew COTA Primary Care Provider Reason for Visit * Reason Comments Med Change Request Encounter Details Date Type Department Care Team ([facility] st Contact Info) Description 04/29/2024 Refill [facility] MEDICINE [address] [place] [address] Name, MD Matthew [address] [place] [address] Social History Tobacco Use Types Packs/Day Years Used Date Smoking Tobacco: Never Passive Smoke Exposure: Never Smokeless Tobacco: Never Alcohol Use Standard Drinks/Week Comments Yes 0 (1 standard drink = 0.6 oz pur e alcohol) social Depression Answer Date Recorded Patient Health Questionnaire-9 Score 0 04/29/2024 Patient Health Questionnaire-9 Score 0 04/29/2024 Last PHQ-9: Questionnaire Data Not on file 0 04/29/2024 Housing Stability Answer Date Recorded What is your housing situation today? I have jorge l minaya 04/29/[address] you li ve. Do you have problems with any of the following? None of the above 04/29/2024 Food Insecurity Answer Date Recorded Within the past 12 months, y ou worried that your food would run out before you got money to buy more: Never True 04/29/2024 Within the past 12 months,th e food you bought just didn't last and you didn't have enough money to get more: Never True 06/2024 Transportation Answer Date Recorded In the past 12 months, has l ack of transportation kept you from medical appts, meetings, work or from getting things needed for daily living? No 04/29/2024 Utilities Answer Date Recorded In the past 12 months, has t he electric, gas, oil or water company threatened to shut off services in your home? No 04/29/2024 Depression Answer Date Recorded Patient Health Questionnaire-2 Score 0 04/29/2024 Internet Access Answer Date Recorded Internet Access Q1 Yes 04/29/2024 Internet Access Q2 Not on file 04/29/2024 Sex and Gender Information Value Date Recorded Sex Assigned at Male 01/23/2022 10:35 AM EDT Legal Sex Male 10:35 AM EDT Gender Identity Male 01/23/2022 10:35 AM EDT Sexual Orientation Straight 01/23/2022 10 :35 AM EDT documented as of this encounter Plan of Treatment Upcoming Encounters Date Type Department Care Team (Late st Contact Info) Description 05/08/2024 2:00 PM EST Clinical Support [facility] MEDICINE [address] [place] [address] documented as of this encounter Visit Diagnoses Not on filedocumented in this encounter Additional Health Concerns Assessment Noted Time PHQ-9 Depression Total Score: 0 04/29/19 25 2:14 PM EST documented as of this encounter Care Teams Agricultural Engineering Technician Relationship Specialty Start Date End Date Name, MD Matthew [address] [place] [address] PCP - General Family Medicine 10/21/18 documented as of this encounter
--- OUTSIDE RECORDS SUMMARY | 2024-04-30 07:36 | XMS_ITS | Data Portability ---
Author Organization [facility], [address] Address [address] [place] [address] Care Team Providers Care Telecommunication Operator Name Role Phone NAME, JEREMY Primary Care Provider [phone] Assessment No assessment recorded. Plan of Treatment Reminders Order Date Submit Date Provider Last Modified By Organization Details Last Modified Time Details Appointments None recorded. Lab rapid flu (A+B) 2022 023 [email or web address] [facility] [address], [address] [place], [address], 18:19:47 Referral None recorded. Procedures None recorded. Surgeries None recorded. Imaging None recorded. Medication Orders oseltamivir 75 mg capsule 2022 023 [id number], [address] [place], [address], 3 18:19:49 Patient TargetsNo targets recorded. Patient Instructions Encounter Date Encounter Id Patient Instructions Last Modified By Organization Details Last Modified Time 04/18/2022 [id number] influenza (flu): care instructions [email or web address] Not available 04/18/2022 18:19:47 Based on your Presentation and Exam you are being diagnosed with Influenza. Your rapid Flu test was Negative Influenza is caused by a virus that is highly contagious. If you have any family member that have been exposed they typically will start to show symptoms in 48-72 hours. I am going to prescribe you Tamiflu - which has to be started within 48 hours to be effective. If it is started after that time it typically can cause GI symptoms. If family member show symptoms, remember that treatment has to be started within 48 hours. You are considered contagious for 5 Days after the start of the fever. You should isolate and not go to work, sports, events during this quarantine period. The following are my recommendations to help with your symptoms while your body fights this infection: 1. Take Ibuprofen or Tylenol if you do not have any allergies to these medications. If you take a blood thinner you should not take NSAIDS like Ibuprofen. These medication will help with the inflammation in your respiratory tract which should help the cough. 2. Do not take any decongestants at this time because this will dry out that tract too much. If you have a lot of nasal congestion you can try nasal decongestants, but I would not take them more than 5 days. 3. Use a humidifier or add a cup of water by your bed. Sometimes if our sleeping environment is too dry this can lead to cough 4. Salt Water Gargles 5. Saline nasal spray is helpful. 6. Would recommend taking a antihistamine to help with the congestion. 7. Clean Surfaces regularly and try to stay isolated from family members. I would be seen again if you develop any of the following. 1. Cough develops last longer than 3 weeks. 2. Develop shortness of breath or wheezing. 3. Severe Headache with vision changes 4. Stiff Neck 5. Fever does not reduce a few points with Ibuprofen or Tylenol. I would go immediately to the Emergency Room if you develop: 1. Chest Pain 2. Severe Shortness of breath 3. Coughing up Blood. [email or web address] Not available 04/18/2022 18:11:03 Reason for Referral None Reported. Results Created Date Observation Date Name Description Value Unit Range Abnormal Flag Note LastModifiedBy Organization Detail LastModifiedTime 04/18/1904/18/2022 rapid flu (A+B) Unknown Analyte Normal = Negati ve Not Available [address] [place], [address], 04/18/2022 17:10:51 04/18/1904/18/2022 rapid flu (A+B) Unknown Analyte Normal = Negati ve Not Available [address] [place], [address], 04/18/2022 17:10:51 04/18/1904/18/2022 rapid flu (A+B) Unknown Analyte negati ve Not Available [address] [place], [address], 04/18/2022 17:10:51 04/18/19 23 04/18/2022 rapid flu (A+B) Unknown Analyte negati ve Not Available [address] [place], [address], 04/18/2022 17:10:51 Result Notes None recorded. Problems No Known Problems Procedures Surgical History Date Name Laterality Status Provider Name and Address Organization Details Recorded Time hernia repair completed ROMEO DRINKWINE [place] - [facility] 04/18/2022 17:07:19 Appendectomy completed ROMEO DRINKWINE PA - [facility] 04/18/2022 17:07:26 tonsillectomy completed ROMEO DRINKWINE PA - [facility] 04/18/2022 17:07:34 total knee replacement completed ROMEO DRINKWINE PA - [facility] 04/18/2022 17:07:41 Imaging Results None recorded. Procedure Notes None recorded. Medical Equipment None Reported. Allergies No known drug allergies Medications Name Sig Start Date Stop Date Status Note LastModified by Organization Details LastModified Time nystatin 100,000 unit/mL oral suspension TAKE 5 ML BY MOUTH 4 TIMES A DAY FOR 7 DAYS SWISH AND SWALLOW active Not Available Not Available No t Available azithromycin 250 mg tablet TAKE 2 TABLETS BY MOUTH TODAY, THEN TAKE 1 TABLET DAILY FOR 4 DAYS active Not Available Not Available No t Available fluconazole 200 mg tablet TAKE 1 TABLET (200 MG) BY MOUTH IN THE MORNING FOR 14 DAYS. active Not Available Not Available No t Available prednisolone acetate 1 % eye drops,suspen suma INSTILL 1 DROP INTO BOTH EYES THREE TIMES A DAY FOR 3 WEEKS THEN D/C active Not Available Not Available No t Available tamsulosin 0.4 mg capsule TAKE 1 CAPSULE BY MOUTH EVERY DAY 1/2 HOUR FOLLOWING THE SAME MEAL EACH DAY active Not Available Not Available No t Available benzonatate 100 mg capsule TAKE 1 CAPSULE BY MOUTH 3 TIMES EVERY DAY NEEDED FOR COUGH active Not Available Not Available No t Available hyoscyamine 0.125 mg disintegrati ng tablet PLEASE SEE ATTACHED FOR DETAILED DIRECTIONS active Not Available Not Available N ot Available oseltamivir 75 mg capsule TAKE 1 CAPSULE BY MOUTH TWICE A DAY FOR 5 DAYS active Not Available Not Available No t Available ketoconazole 2 % topical cream APPLY TO AFFECTED AREA EVERY DAY active Not Available Not Available No t Available finasteride 5 mg tablet TAKE 1 TABLET BY MOUTH EVERY DAY active Not Available Not Available No t Available naproxen 500 mg tablet TAKE 1 TABLET (500 MG) BY MOUTH WITH BREAKFAST AND WITH EVENING MEAL active Not Available Not Available No t Available diazepam 5 mg tablet TAKE 1 TABLET BY MOUTH DIRECTED TAKE 30 MIN PRIOR TO PROCEDURE active Not Available Not Available No t Available oxycodone 5 mg tablet PLEASE SEE ATTACHED FOR DETAILED DIRECTIONS active Not Available Not Available N ot Available Flovent HFA 110 mcg/actuatio n aerosol inhaler INHALE 2 PUFFS BY MOUTH 2 TIMES A DAY, USE WITH SPACER CHAMBER RINSE MOUTH AND THROAT AFTER USEE active Not Available Not Available N ot Available finasteride active Not Available Not A vailable Not Available tamsulosin active Not Available Not Av ailable Not Available Antiseptic Skin Cleanser (chlorhexidi ne) 4 % liquid CLEAN FEET TWICE A DAY active Not Available Not Available Not Available Navi Ramos [facility] spacer USE DIRECTED active Not Available Not Available No t Available Eliquis 5 mg tablet TAKE 1 TABLET BY MOUTH IN THE MORNING AND AT BEDTIME active Not Available Not Available No t Available Xiidra 5 % eye drops in a dropperette INSTILL 1 DROP INTO BOTH EYES TWICE A DAY active Not Available Not Available Not Available Vitals Date Recorded Body height Body mass index (BMI) Body weight Pain severity - 0-10 verbal numeric rating [Score] - Reported Body temperature Respiratory rate Heart rate Oxygen saturation Oxygen saturation in Arterial blood by Pulse oximetry Systolic blood pressure Diastolic blood pressure Provider Name and Address Organization Details Last Updated DateTime 3 170.18 cm 29.8 kg/m2 58448.5 5 g 8 97 [degF] 16 /min 64 /min 99 % 99 % 130 mm[Hg] 80 mm[Hg] ROMEO NESBITT PA - [facility] 3 17:10:44 Social History Question Answer Notes LastModified by Organizat ion Details LastModified Time Tobacco Smoking Status Never Smoker ROMEO DRINKWINE null, [place] - [facility] 04/18/2022 17:08:11 What Is Your Level Of Alcohol Consumption? Occasional Information not available 04/18/2022 Do You Use Any Illicit Or Recreational Drugs? No Information not available 04/18/2022 Have You Recently Traveled Abroad? No Information not available 04/18/2022 Do You Or Have You Ever Used Any Other Forms Of Tobacco Or Nicotine? No Information not available 04/18/2022 Sex: Unknown Functional Status None recorded. Mental Status None recorded. Family History Relationship Description Onset Age of this Age Resolved Age Notes LastModified by Organization Details LastModified Time Father Malignant neoplastic disease [email or web address] Not available 04/18 17:07:57 Medical History No medical history recorded. Immunizations Vaccine Type Date Status Note Provider Nam e and Address Organization Details Recorded Time Influenza, MDCK, quadrivalent, PF 01/23/2019 completed ROMEO DRINKWINE null, [place] - [facility] 04/18/2022 17:08:18 MMR 1961 completed ROMEO DRINKWINE null, [place] - [facility] 04/18/2022 17:08:18 zoster recombinant 02/01/2019 completed ROMEO DRINKWINE null, [place] - [facility] 04/18/2022 17:08:18 Tdap 11/30/2020 completed ROMEO DRINKWINE null, [place] - [facility] 04/18/2022 17:08:18 Hep B, unspecified formulation 1960 completed ROMEO DRINKWINE null, [place] - [facility] 04/18/2022 17:08:18 Past Encounters Encounter ID Performer Location Encounter Start Date Encounter Closed Date Diagnosis/Indication Diagnosis SNOMED-CT Code Diagnosis ICD10 Code Diagnosis Note [id number] [address] [facility] [place] [address] 05/23/2017 08:04:06 05/23/2017 08:37:59 [id number] [facility] [id number] [address] [place] [address] 04/18/2022 16:08:22 04/18/2022 18:22:40 Influenza-like symptoms 416568355 R68.89 Health Concerns Section Related Observation LastModified by Organization Detai ls LastModified Time None Recorded Concern Status LastModified by Organization Details LastModified Time None Recorded Advance Directives Directive None Recorded Payers Encounter Date Sequence Insurance Name Policy Number Policy Quiroz Covered Member ID Quiroz Member ID Guarantor Name 05/23/2017 1 [facility] [place] [id number] Vic Pickardtim [id number] Vic Landa 04/18/2022 1 [facility] ([facility] [place] Vic Pickardtim [id number] Vic Mellytim Notes Date Note Type Note Provider Name and Address Organization Details Recorded Time 04/18/2022 text/html FeverReported bypatient.source of patient informationPatient arrived at Urgent Care ambulatory Severity:worsening Modifying Factors:nothing gives relief Associated Symptoms:no rash; no cold symptoms;lethargy;weakn essNotes:Sudden onset last night around 9 pm - headache, bodyaches, fatigue, weakness, nausea. The patient states feels exactly like he did last year when he had influenza. No known exposures. He reports that he is hoping to get antivirals. The patient denies any CP or SOB. Does have bad joint pain. Denies rashes. No sore throat or ear pain. DEISY SANDOVAL [address] [place], [address], [place] - [facility] 04/18/2022 18:22:01
--- OUTSIDE RECORDS SUMMARY | 2024-04-30 07:36 | XMS_ITS | Clinical Summary ---
Author Organization [employer] Address [address] [place] [address] [address] [place] [address] Care Team Providers Care Tufting Machine Operator Name Role Phone Name, Matthew COTA Primary Care Provider [phone] Allergies Active Allergy Reactions Criticality Noted Date Comments [place] Oil 12/12/2022 Other reaction(s): brazillian nuts brazillian nuts Gramineae Pollens 08/22/2022 Other 12/12/2022 Other reaction(s): eggplant Penicillin G 01/28/2019 Penicillins 08/22/2022 Pumpkin Seed Unknown 11/30/2020 Medications omega-3 (Fish Oil) 1000 MG capsule OTC per patient Active loratadine (Claritin) 10 MG tablet Take 10 mg by mouth 1 (one) time each day. 04/23/19 22 Active Xiidra 5 % solution Administer 1 drop into both eyes in the morning and at bedtime. 07/22/19 22 Active Flovent HFA 110 MCG/ACT inhaler INHALE 2 PUFFS BY MOUTH 2 TIMES A DAY, USE WITH SPACER CHAMBER RINSE MOUTH AND THROAT AFTER USEE 09/01/19 22 Active terbinafine (LamISIL AT) 1 % cream Apply topically 2 times daily. 15 g 2 08/23/19 23 Active Blood Pressure kit Use once a day 1 kit 03/09/20 23 Active azithromycin (Zithromax) 250 MG tabletIndicati ons:Bronchitis Take 2 tablets (500 mg) by mouth in the morning for 1 day, THEN 1 tablet (250 mg) in the morning for 4 days. 6 tablet 04/17/19 24 Active albuterol 108 (90 Base) MCG/ACT inhaler TAKE 2 PUFFS BY MOUTH EVERY 4 TO 6 HOURS NEEDED 8.5 g 1 10/09/19 24 Active Perfluorohexyl octane (Miebo) 1.338 GM/ML solution Administer 1 drop into affected eye(s) 4 times daily. 3 mL 04/29/19 25 025 Active tamsulosin (Flomax) 0.4 MG 24 hr capsule TAKE 1 CAPSULE BY MOUTH EVERY DAY 1/2 HOUR FOLLOWING THE SAME MEAL EACH DAY 30 capsule 11 04/29/19 25 Active finasteride (Proscar) 5 MG tabletIndicati ons:Benign prostatic hyperplasia, unspecified whether lower urinary tract symptoms present Take 1 tablet by mouth every day 90 tablet 1 04/29/19 25 Active sildenafil (Viagra) 50 MG tablet Take 1 tablet (50 mg) by mouth if needed each day for erectile dysfunction. 10 tablet 04/29/19 25 025 Active naproxen (Naprosyn) 500 MG tablet Take 1 tablet (500 mg) by mouth 2 times daily. 60 tablet 04/29/19 25 025 Active Diclofenac Sodium 1 % gelIndications :PE (physical exam), routine apply (2G) by topical route 2 times every day to the affected area(s) 50 g 2 04/29/19 25 Active valACYclovir (Valtrex) 500 MG tabletIndicati ons:H/O herpes labialis Take 1 tablet (500 mg) by mouth 2 times daily for 5 days. 10 tablet 1 04/29/19 25 025 Active carisoprodol (Soma) 350 MG tablet Take 1 tablet (350 mg) by mouth 2 times daily for 15 days. 30 tablet 04/29/19 25 025 Active fluticasone (Flonase) 50 MCG/ACT nasal spray Administer 2 sprays into each nostril Once per day. Shake gently. Before first use, prime pump. After use, clean tip and replace cap. 16 g 1 04/29/19 25 025 Active nystatin (Mycostatin) 319298 UNIT/ML suspension Take 1 mL (100,000 Units) by mouth 4 times daily for 15 days. 60 mL 04/29/19 25 025 Active valACYclovir (Valtrex) 500 MG tablet TAKE 1 TABLET BY MOUTH TWICE A DAY 03/23/20 21 025 Discontinued(Re order (will not trigger notification to Pharmacy)) fluticasone (Flonase) 50 MCG/ACT nasal spray Administer 2 sprays into each nostril in the morning. Shake gently. Before first use, prime pump. After use, clean tip and replace cap. 16 g 1 08/23/19 23 025 Discontinued(Re order (will not trigger notification to Pharmacy)) Diclofenac Sodium 1 % gelIndications :Closed displaced fracture of distal phalanx of right ring finger, initial encounter apply (2G) by topical route 2 times every day to the affected area(s) 50 g 2 05/04/19 24 025 Discontinued(Re order (will not trigger notification to Pharmacy)) tamsulosin (Flomax) 0.4 MG 24 hr capsule TAKE 1 CAPSULE BY MOUTH EVERY DAY 1/2 HOUR FOLLOWING THE SAME MEAL EACH DAY 30 capsule 11 07/10/19 24 025 Discontinued(Re order (will not trigger notification to Pharmacy)) finasteride (Proscar) 5 MG tabletIndicati ons:Benign prostatic hyperplasia, unspecified whether lower urinary tract symptoms present TAKE 1 TABLET BY MOUTH EVERY DAY 90 tablet 1 03/11/20 24 025 Discontinued(Re order (will not trigger notification to Pharmacy)) Active Problems Problem Noted Date Diagnosed Date Oral candidiasis 12/12/2022 ABUNDIO (obstructive sleep apnea) 12/12/2022 Biceps tendon rupture, left, subsequent encounte r 09/04/2022 Erythrocytosis 03/17/2022 Joint pain 03/17/2022 Unspecified fracture of fift h metacarpal bone, right hand, initial encounter for closed fracture 09/20/2021 Hyperlipidemia 06/21/2018 History of total knee arthroplasty 06/21/2018 Benign prostatic hyperplasia without urinary obs truction 06/21/2018 Chronic low back pain 06/21/2018 Resolved Problems Problem Noted Date Diagnosed Date Resolved Date Class 1 obesity 08/22/2022 12/12/2022 Neuropathic pain 03/17/2022 12/12/2022 Headache 03/17/2022 12/12/2022 Cough 03/17/2022 12/12/2022 Amaurosis fugax 03/17/2022 03/28/2022 Other slipping, tripping and stumbling without falling, initial encounter 09/22/202112/12 Prosthetic joint infection 07/30/2018 0 12/12/2022 Encounters Date Type Department Care Team Description 04/29/2024 2:00 PM EST Office Visit [facility] [address] [place] [id number] NameMatthew MD PE (physical exam), routine (Primary Dx); Elevated blood pressure reading; History of Lyme disease; Dry eye syndrome, unspecified laterality; Benign prostatic hyperplasia, unspecified whether lower urinary tract symptoms present; H/O herpes labialis; Acute midline low back pain without sciatica 04/29/[address] [address] Matthew Burnett MD 04/16/2024 Patient Outreach [address] [address] Matthew Burnett MD Pre-visit Planning ((Unable to complete screening patient was occupied) 03/08/[address] [address] Patricia Abrams, LIFE SUPPORT TECHNICIAN Benign prostatic hyperplasia, unspecified whether lower urinary tract symptoms present from Last 3 Months Immunizations Name Administration Dates Next Due Hep A, Unspecified 11/01/2005 Hep B, Unspecified 1960 IPV 11/01/2005 Influenza Injectable Quadriv alant Preservative Free IIV4 MDCK 01/23/2019 MMR 1961 Meningococcal ACWY, unspecified 11/07/2005 Tdap 11/30/2020 Typhoid, ViCPs 11/01/2005 Yellow Fever 11/01/2005 Zoster, Recombinant 02/01/2019 Social History Tobacco Use Types Packs/Day Years Used Date Smoking Tobacco: Never Passive Smoke Exposure: Never Smokeless Tobacco: Never Tobacco Cessation:Counseling Given: Not Answered Alcohol Use Standard Drinks/Week Comments Yes 0 (1 standard drink = 0.6 oz pur e alcohol) social Depression Answer Date Recorded Patient Health Questionnaire-9 Score 0 04/29/2024 Patient Health Questionnaire-9 Score 0 04/29/2024 Last PHQ-9: Questionnaire Data Not on file 0 04/29/2024 Housing Stability Answer Date Recorded What is your housing situation today? I have jorge l sing 04/29/[address] you li [...] Orientation Straight 01/23/2022 10 :35 AM EDT Last Filed Vital Signs Vital Sign Reading Time Taken Comments Blood Pressure 130/92 04/29/2024 2:12 PM EST Pulse 74 04/29/2024 2:12 PM EST Temperature 36.7 ??C (98 ??F) 04/29/2024 2:12 PM EST Respiratory Rate 19 04/29/2024 2:12 PM EST Oxygen Saturation 97% 07/10/2023 3:36 PM EDT Inhaled Oxygen Concentration - - Weight 90 kg (198 lb 8 oz) 04/29/2024 2:12 PM ES T Height 170.2 cm (5' 7 ) 04/29/2024 2:12 PM EST Body Mass Index 31.09 04/29/2024 2:12 PM EST Plan of Treatment Upcoming Encounters Date Type Department Care Team (Late st Contact Info) Description 05/08/2024 2:00 PM EST Clinical Support [facility] [address] [place] [address] Health Maintenance Due Date Last Done Comments CT Colonography 1960 FIT DNA/Cologuard 1960 FIT 1960 FOBT 1960 Sigmoidoscopy 1960 Hepatitis B Vaccines (2 of 3 - 3-dose series) 01/18/1961 1960 IPV Vaccines (2 of 3 - Adult catch-up series) 11/29/2005 11/01/2005 Pneumococcal Vaccine: 50+ Years (1 of 1 - PCV) 2010 Zoster Vaccines (2 of 2) 03/29/2019 02/01/2019 RSV Patients and Patients Aged 60 years or older (1 - Risk 60-74 years 1-dose series) 2020 COVID-19 Vaccine (1 - 2023-2 5 season) 2023 Influenza Vaccine (#1) 2023 01/23/2019 Alcohol/Substance Use Screening 04/29/2025 04/29/2024 Depression Screening 04/29/2025 04/29/2024, 04/29/2024 SDOH Screening 04/29/2025 04/29/2024 Tobacco Screening 04/29/2025 04/29/2024 Lipid Panel 06/08/2025 06/08/2020, 10/27/2019 Colonoscopy 08/29/2027 08/28/2022, 08/28/2022 Colorectal Cancer Screening 08/29/2027 DTaP/Tdap/Td Vaccines (2 - T d or Tdap) 11/30/2030 11/30/2020 Hepatitis A Vaccines Aged Out 11/01/2005 No long er eligible based on patient's age to complete this topic Meningococcal Vaccine Aged Out 11/07/2005 No corine kevin eligible based on patient's age to complete this topic Hepatitis C Screening Completed 10/27/2019 HIV Screening Completed 12/14/2021, 10/27/2019 HIB Vaccines Aged Out No longer eligi ble based on patient's age to complete this topic HPV Vaccines Aged Out No longer eligi ble based on patient's age to complete this topic RSV under 20 months Aged Out No longe r eligible based on patient's age to complete this topic Rotavirus Vaccines Aged Out No longer eligible based on patient's age to complete this topic Procedures Procedure Name Priority Date/Time Associated Diagnosis Comments COLONOSCOPY Routine 08/28/2022 1:38 PM EDT HIV 1/2 ANTIGEN/ANTIBODY, FOURTH GENERATION W/RFL Routine 12/14/2021 1:46 PM EDT LIPID PANEL, STANDARD Routine 06/08/2020 8:47 AM EDT ZZZ HISTORICAL HEPATITIS C AB W/REFL TO HCV RNA, QN, PCR Routine 10/27/2019 8:08 AM EDT from Last 3 Months or Most Recently Relevant to Health Maintenance Results * (ABNORMAL) Colonoscopy (08/28/2022 1:38 PM EDT) Colonoscopy Abnormal( A) Normal Comment:Hx of polyps repeat every 3-5 yrs Matthew Name HEALTH MAINTENANCE Final Result * HIV 1/2 ANTIGEN/ANTIBODY,FOURTH GENERATION W/RFL (12/14/2021 1:46 PM EDT) HIV-1/2 ANTIGEN AND ANTIBODIES, 4TH GENERATION W/ REFLEX NON-REACT NOREEN NON-REACT NOREEN [facility] Comment: HIV-1 antigen and HIV-1/HIV-2 antibodies were not detected. There is no laboratory evidence of HIV infection. ?? PLEASE NOTE: This information has been disclosed to you from records whose confidentiality may be protected by state law. ??If your state requires such protection, then the state law prohibits you from making any further disclosure of the information without the specific written consent of the person to whom it pertains, or as otherwise permitted by law. A general authorization for the release of medical or other information is NOT sufficient for this purpose. ? For additional information please refer to http://education.MarkMonitor.NeurAxon/faq/GKT359 (This link is being provided for informational/ educational purposes only.) ? The performance of this assay has not been clinically validated in patients less than 2 years old. ?? 12/14/2021 1:46 PM EDT Matthew Burnett MD LAB BLOOD ORDERABLES Final Resul t Performing Organization Address [facility]/ZIP Co de Phone Number [facility] [address] [place] [address], * (ABNORMAL) LIPID PANEL, STANDARD (06/08/2020 8:47 AM EDT) Chol/HDLC Ratio 5.6(H) <5.0 (calc) [facility] Cholesterol, Total 219(H) <200 mg/dL [facility] HDL Cholesterol 39(L) > OR = 40 mg/dL [facility] LDL Cholesterol 155(H) mg/dL (calc) [facility] Comment: Reference range: <100 ?? Desirable range <100 mg/dL for primary prevention; ?? <70 mg/dL for patients with CHD or diabetic patients ?? with > or = 2 CHD risk factors. ?? LDL-C is now calculated using the Nany ?? calculation, which is a validated novel method providing ?? better accuracy than the Friedewald equation in the ?? estimation of LDL-C. ?? Deni CAMERON et al. YEIMI. 2013;310(19): 7320-9423 ?? (http://education.[employer].NeurAxon/faq/SBI174) Non-HDL Cholesterol 180(H) <130 mg/dL (calc) [facility] Comment: For patients with diabetes plus 1 major ASCVD risk ?? factor, treating to a non-HDL-C goal of <100 mg/dL ?? (LDL-C of <70 mg/dL) is considered a therapeutic ?? option. Triglycerides 128 <150 mg/dL [facility] 06/08/2020 8:47 AM EDT us Matthew Burnett MD LAB BLOOD ORDERABLES Final Resul t Performing Organization Address [facility]/ZIP Co de Phone Number [facility] [address] [place] [address], * HEPATITIS C AB W/REFL TO HCV RNA, QN, PCR (10/27/2019 8:08 AM EDT) HEPATITIS C ANTIBODY NON-REACT NOREEN NON-REACT NOREEN [facility] INDEX 0.01 <1.00 [facility] Comment: ?? HCV antibody was non-reactive. There is no laboratory ?? evidence of HCV infection. ?? In most cases, no further action is required. However, if recent HCV exposure is suspected, a test for HCV RNA (test code 58177) is suggested. ?? For additional information please refer to http://[employer]/faq/PYW30w1 (This link is being provided for informational/ educational purposes only.) ?? HEPATITIS C ANTIBODY NON-REACT NOREEN NON-REACT NOREEN [facility] INDEX 0.01 <1.00 [facility] Comment: ?? HCV antibody was non-reactive. There is no laboratory ?? evidence of HCV infection. ?? In most cases, no further action is required. However, if recent HCV exposure is suspected, a test for HCV RNA (test code 25470) is suggested. ?? For additional information please refer to http://[employer]/faq/ORG41x0 (This link is being provided for informational/ educational purposes only.) ?? HEPATITIS C ANTIBODY NON-REACT NOREEN NON-REACT NOREEN [facility] INDEX 0.01 <1.00 [facility] Comment: ?? HCV antibody was non-reactive. There is no laboratory ?? evidence of HCV infection. ?? In most cases, no further action is required. However, if recent HCV exposure is suspected, a test for HCV RNA (test code 60865) is suggested. ?? For additional information please refer to http://[employer]/faq/EAM58f1 (This link is being provided for informational/ educational purposes only.) ?? 10/27/2019 8:08 AM EDT us Matthew Hortencia COTA HISTORICAL/NON ORDERABLE LABS Fi nal Result [facility] [address] from Last 3 Months or Most Recently Relevant to Health Maintenance Insurance , [address] [address] Care Teams Tufting Machine Operator Relationship Specialty Start Date End Date Name, MD Matthew [address] [place] [address] PCP - General Family Medicine 10/21/18
--- OUTSIDE RECORDS SUMMARY | 2024-04-30 07:36 | XMS_ITS | Encounter Summary ---
Author Organization [employer] Address [address] [facility] [address] [place] [address] Care Team Providers Care Pantry Worker Name Role Phone Name, Matthew COTA Primary Care Provider [phone] Reason for Visit * Reason Comments Annual Exam Encounter Details Date Type Department Care Team (Late st Contact Info) Description 04/29/2024 2:00 PM EST Office Visit [facility] [address] [place] [phone] Name, MD Matthew [address] [place] [address] PE (physical exam), routine (Primary Dx); Elevated blood pressure reading; History of Lyme disease; Dry eye syndrome, unspecified laterality; Benign prostatic hyperplasia, unspecified whether lower urinary tract symptoms present; H/O herpes labialis; Acute midline low back pain without sciatica Social History Tobacco Use Types Packs/Day Years [...] AM EDT documented as of this encounter Last Filed Vital Signs Vital Sign Reading Time Taken Comments Blood Pressure 130/92 04/29/2024 2:12 PM EST Pulse 74 04/29/2024 2:12 PM EST Temperature 36.7 ??C (98 ??F) 04/29/2024 2:12 PM EST Respiratory Rate 19 04/29/2024 2:12 PM EST Oxygen Saturation - - Inhaled Oxygen Concentration - - Weight 90 kg (198 lb 8 oz) 04/29/2024 2:12 PM ES T Height 170.2 cm (5' 7 ) 04/29/2024 2:12 PM EST Body Mass Index 31.09 04/29/2024 2:12 PM EST documented in this encounter Progress Notes * Matthew Burnett MD - 04/29/2024 2:00 PM EST Subjective Patient ID: Vic Landa is a 63 y.o. male who presents for Annual Exam. Patient comes for a physical exam. She is complaining of low back pain. The patient works in construction and he explains to me that he fell from about 8 feet from a ladder that collapsed, the fall occurred several weeks ago.. The patient had trauma to the low back. He had extensive bruising the days following the fall that has resolved by the time of his visit today. He does not have leg radiculopathy but still has low back pain and spasms on the lower back. He asked me to refill naproxen he uses for joint pains and a short course of Soma as a muscle relaxant. He also explains to me that he went to see an alternative medicine doctor and was diagnosed with chronic Lyme disease. He was not prescribed any antibiotics but was given some natural medicines. He requested to recheck his Lyme testing. The patient does not have any joint swelling or redness, no rash. He feels tired, has lack of energy. He explains to me he is recovering from a COVID infection a few weeks ago. He is up-to-date with his colonoscopy. He refused any vaccination today. Review of Systems Constitutional: Negative for chills, fatigue and fever. HENT: Negative for sore throat. Respiratory: Negative for cough, chest tightness and shortness of breath. Cardiovascular: Negative for chest pain, palpitations and leg swelling. Gastrointestinal: Negative for abdominal pain and blood in stool. Musculoskeletal: Positive for back pain. Visit Vitals BP (!) 130/92 (BP Location: Left arm, Patient Position: Sitting, BP Cuff Size: Adult) Pulse 74 Temp 98 ??F (36.7 ??C) (Oral) Resp 19 Ht 5' 7 (1.702 m) Wt 198 lb 8 oz (90 kg) BMI 31.09 kg/m?? Smoking Status Never BSA 2.06 m?? Objective Physical Exam Constitutional: Appearance: Normal appearance. Cardiovascular: Rate and Rhythm: Normal rate and regular rhythm. Heart sounds: No murmur heard. Pulmonary: Effort: Pulmonary effort is normal. No respiratory distress. Breath sounds: No wheezing, rhonchi or rales. Abdominal: Palpations: Abdomen is soft. Tenderness: There is no abdominal tenderness. Musculoskeletal: Right lower leg: No edema. Left lower leg: No edema. Neurological: Mental Status: He is alert. Assessment/Plan Diagnoses and all orders for this visit: PE (physical exam), routine Comments: The patient is very physically active. I recommended to decrease salt in the diet. I recommended to investigate about the DASH diet. Check fasting blood work listed below. He was prescribed Viagra for symptoms of ED Orders: - CBC auto differential; Future - Comprehensive Metabolic Panel; Future - Lipid Panel, Standard; Future - PSA,Total; Future - Diclofenac Sodium 1 % gel; apply (2G) by topical route 2 times every day to the affected area(s) Elevated blood pressure reading Comments: I recommended to start checking blood pressure at home. Follow-up televisit with team nurse in a week. Orders: - CBC auto differential; Future - Comprehensive Metabolic Panel; Future - Lipid Panel, Standard; Future - PSA,Total; Future History of Lyme disease Comments: I will check his Lyme serology. Orders: - Lyme Disease Ab with Reflex to Blot (IgG, IgM); Future Dry eye syndrome, unspecified laterality Comments: Patient has years with this problem. He has tried numerous eyedrops without improvement. He is encouraged to continue follow-up with his mobile device engineer. He asked for prescription of Miebo eyedrops and I agreed. Benign prostatic hyperplasia, unspecified whether lower urinary tract symptoms present Comments: Continue tamsulosin and finasteride. Orders: - finasteride (Proscar) 5 MG tablet; Take 1 tablet by mouth every day H/O herpes labialis Comments: I refilled valacyclovir to use at the onset of herpes attacks. Orders: - valACYclovir (Valtrex) 500 MG tablet; Take 1 tablet (500 mg) by mouth 2 times daily for 5 days. Acute midline low back pain without sciatica Comments: I recommended as needed naproxen, topical Voltaren, short course of Soma. Other orders - Perfluorohexyloctane (Miebo) 1.338 GM/ML solution; Administer 1 drop into affected eye(s) 4 timesdaily. - tamsulosin (Flomax) 0.4 MG 24 hr capsule; TAKE 1 CAPSULE BY MOUTH EVERY DAY 1/2 HOUR FOLLOWING THE SAME MEAL EACH DAY - sildenafil (Viagra) 50 MG tablet; Take 1 tablet (50 mg) by mouth if needed each day for erectile dysfunction. - naproxen (Naprosyn) 500 MG tablet; Take 1 tablet (500 mg) by mouth 2 times daily. - carisoprodol (Soma) 350 MG tablet; Take 1 tablet (350 mg) by mouth 2 times daily for 15 days. - fluticasone (Flonase) 50 MCG/ACT nasal spray; Administer 2 sprays into each nostril Once per day.Shake gently. Before first use, prime pump. After use, clean tip and replace cap. - nystatin (Mycostatin) 423018 UNIT/ML suspension; Take 1 mL (100,000 Units) by mouth 4 times dailyfor 15 days. documented in this encounter Plan of Treatment Upcoming Encounters Date Type Department Care Team (Late st Contact Info) Description 05/08/2024 2:00 PM EST Clinical Support [facility] [address] [place] [id number] Scheduled Orders Name Type Priority Associated Diagnoses Orde r Schedule CBC auto differential Lab Routine PE (physical exam), routine Elevated blood pressure reading Expected: 04/29/2024 (Approximate), Expires: 04/29/2025 Comprehensive Metabolic Panel Lab Routine PE (physical exam), routine Elevated blood pressure reading Expected: 04/29/2024 (Approximate), Expires: 04/29/2025 Lipid Panel, Standard Lab Routine PE (physical exam), routine Elevated blood pressure reading Expected: 04/29/2024 (Approximate), Expires: 04/29/2025 PSA,Total Lab Routine PE (physical exam), routine Elevated blood pressure reading Expected: 04/29/2024, Expires: 04/29/2025 Lyme Disease Ab with Reflex to Blot (IgG, IgM) Lab Routine History of Lyme disease Expected: 04/29/2024, Expires: 04/29/2025 documented as of this encounter Visit Diagnoses Diagnosis PE (physical exam), routine- Primary Elevated blood pressure reading Elevated blood pressure reading without diagnosis of hypertension History of Lyme disease Dry eye syndrome, unspecified laterality Benign prostatic hyperplasia, unspecified whether lower urinary tract symptoms present H/O herpes labialis Acute midline low back pain without sciatica documented in this encounter Additional Health Concerns Assessment Noted Time PHQ-9 Depression Total Score: 0 04/29/19 25 2:14 PM EST documented as of this encounter Care Teams Pantry Worker Relationship Specialty Start Date End Date Name, MD Matthew [address] [place] [id number] PCP - General Family Medicine 10/21/18 documented as of this encounter
--- OUTSIDE RECORDS SUMMARY | 2024-04-30 07:36 | XMS_ITS | Encounter Summary ---
Author Organization [employer] Address [address] [place] [address] Care Team Providers Care Power Tool Repair Technician Name Role Phone Name, Matthew COTA Primary Care Provider [phone] Reason for Visit * Reason Comments Pre-visit Planning (Unable to complete screening patient was occupied Encounter Details Date Type Department Care Team ([facility] st Contact Info) Description 04/16/2024 Patient Outreach [facility] [address] [place] [address] Name, MD Matthew [address] [place] [address] Pre-visit Planning ((Unable to complete screening patient was occupied) Social History Tobacco Use Types Packs/Day Years Used Date Smoking Tobacco: Never Smokeless Tobacco: Never Alcohol Use Standard Drinks/Week Comments Yes 0 (1 standard drink = 0.6 oz pur e alcohol) social Depression Answer Date Recorded Patient Health Questionnaire-9 Score 0 08/22/2022 Housing Stability Answer Date Recorded What is your housing situation today? I have jorge l minaya 01/18/[address] you li ve. Do you have problems with any of the following? None of the above 01/18/2023 Food Insecurity Answer Date Recorded Within the past 12 months, y ou worried that your food would run out before you got money to buy more: Never True 01/18/2023 Within the past 12 months,th e food you bought just didn't last and you didn't have enough money to get more: Never True Transportation Answer Date Recorded In the past 12 months, has l ack of transportation kept you from medical appts, meetings, work or from getting things needed for daily living? No 01/18/2023 Utilities Answer Date Recorded In the past 12 months, has t he electric, gas, oil or water company threatened to shut off services in your home? No 01/18/2023 Depression Answer Date Recorded Patient Health Questionnaire-2 Score 0 08/22/2022 Sex and Gender Information Value Date Recorded Sex Assigned at Male 01/23/2022 10:35 AM EDT Legal Sex Male 10:35 AM EDT Gender Identity Male 01/23/2022 10:35 AM EDT Sexual Orientation Straight 01/23/2022 10 :35 AM EDT documented as of this encounter Progress Notes * Beatriz Villatoro - 04/16/2024 1:34 PM EST CC Beatriz placed successful outbound call to patient for pre-visit planning. Patient name and confirmed. Patient confirms appt date and time, and has transportation. patient was unable to complete screening, occupied. documented in this encounter Plan of Treatment Upcoming Encounters Date Type Department Care Team (Late st Contact Info) Description 05/08/2024 2:00 PM EST Clinical Support [facility] [address] [place] [address] documented as of this encounter Visit Diagnoses Not on filedocumented in this encounter Additional Health Concerns Assessment Noted Time PHQ-9 Depression Total Score: 0 08/23/19 23 4:16 PM EDT documented as of this encounter Care Teams Power Tool Repair Technician Relationship Specialty Start Date End Date Name, MD Matthew [address] [place] [address] PCP - General Family Medicine 10/21/18 documented as of this encounter
--- OUTSIDE RECORDS SUMMARY | 2024-04-30 07:36 | XMS_ITS | Encounter Summary ---
Author Organization [employer] Address [address] [facility] [address] [place] [address] Care Team Providers Care Scrap Materials Buyer Name Role Phone Name, Matthew COTA Primary Care Provider [phone] Reason for Visit * Reason Onset Date Comments triage 03/10/2022 Encounter Details Date Type Department Care Team ([facility] st Contact Info) Description 03/10/2022 Telephone [facility] [address] [place], [place] [id number] Name, MD Matthew [address] [place] [address] triage Social History Tobacco Use Types Packs/Day Years Used Date Smoking Tobacco: Never Assessed Sex and Gender Information Value Date Recorded Sex Assigned at Male 01/23/2022 10:35 AM EDT Legal Sex Male 10:35 AM EDT Gender Identity Male 01/23/2022 10:35 AM EDT Sexual Orientation Straight 01/23/2022 10 :35 AM EDT documented as of this encounter Miscellaneous Notes * Telephone Encounter - Guerda Longo RN - 03/16/2022 9:46 AM EST T/C placed to pt. Advised of message from pcp re: Eliquis refill and future refills dependent on USresults. Pt verbalized understanding. * Telephone Encounter - Payal López LPN - 03/10/2022 11:21 AM EST Caller Call again to express concerns no change in status from yesterdaybut wuld like a returned ponecall from DR Burnett advise if name does not return caller hould be seen in [facility] or urgent care . * Telephone Encounter - Pepe oHweos - 03/10/2022 10:22 AM EST Symptom: Sore Throat Outcome: Schedule an appointment to be seen within 24 hours Reason: No high acuity concerns reported by caller The caller accepted this outcome documented in this encounter Plan of Treatment Upcoming Encounters Date Type Department Care Team (Late st Contact Info) Description 05/08/2024 2:00 PM EST Clinical Support [facility] [address] [place] [id number] documented as of this encounter Visit Diagnoses Not on filedocumented in this encounter Care Teams Scrap Materials Buyer Relationship Specialty Start Date End Date Hortencia, MD Matthew [address] [place] [address] PCP - General Family Medicine 10/21/18 documented as of this encounter
--- OUTSIDE RECORDS SUMMARY | 2024-04-30 07:36 | XMS_ITS | Encounter Summary ---
Author Organization [employer] Address [address] [place] [address] Care Team Providers Care Transportation Security Screener Name Role Phone Name, Matthew COTA Primary Care Provider [phone] Encounter Details Date Type Department Care Team ([facility] st Contact Info) Description 05/07/2023 Telephone [facility] [address] [place] [address] Name, MD Matthew [address] [place] [address] Social History Tobacco Use Types Packs/Day Years Used Date Smoking Tobacco: Never Smokeless Tobacco: Never Alcohol Use Standard Drinks/Week Comments Yes 0 (1 standard drink = 0.6 oz pur e alcohol) social Depression Answer Date Recorded Patient Health Questionnaire-9 Score 0 08/22/2022 Housing Stability Answer Date Recorded What is your housing situation today? I have jorge laudelia minaya 01/18/[address] you [...] encounter Miscellaneous Notes * Telephone Encounter - Rachell Ramey LPN - 05/07/2023 2:16 PM EST Critical Result Line call received at this time from [facility] with [facility]. Report being faxed to [phone]. Xray right 4th finger shows intra articular avulsion fracture dorsal distal base of 4th finger.Please uppdate PCP and follow with patient. documented in this encounter Plan of Treatment Upcoming Encounters Date Type Department Care Team (Late st Contact Info) Description 05/08/2024 2:00 PM EST Clinical Support [facility] [address] [place] [address] documented as of this encounter Visit Diagnoses Not on filedocumented in this encounter Additional Health Concerns Assessment Noted Time PHQ-9 Depression Total Score: 0 08/23/19 23 4:16 PM EDT documented as of this encounter Care Teams Transportation Security Screener Relationship Specialty Start Date End Date Name, MD Matthew [address] [place] [address] PCP - General Family Medicine 10/21/18 documented as of this encounter
--- OUTSIDE RECORDS SUMMARY | 2024-04-30 07:36 | XMS_ITS | Clinical Summary ---
Author Organization [facility] Address [address] [place] [address] Care Team Providers Care Nuclear Operations Specialist Name Role Phone Jaleel Boswell MD Primary Care Provider [phone] Social History Tobacco Use Types Packs/Day Years Used Date Smoking Tobacco: Never Assessed Sex and Gender Information Value Date Recorded Sex Assigned at Not on file Gender Identity Not on file Sexual Orientation Not on file Job Start Date Occupation Industry Not on file Not on file Not on file Plan of Treatment Health Maintenance Due Date Last Done Comments Hepatitis C Screening 1960 Hepatitis B Vaccines (2 of 3 - 3-dose series) 01[birth year]18/1961 1960 COVID-19 Vaccine (#1) 06/18/1961 Depression Screening 1972 Preventative Health Evaluation 1978 Colon Cancer Screening (Colonoscopy) 2005 Shingrix-Zoster Vaccine (2 of 2) 03/29/2019 02/02/20 19 Influenza Vaccine (#1) 2023 01/23/2019 DTap / Tdap / Td (2 - Td or Tdap) 11/30/2030 021 RSV Adult > 60+ Yrs or Pregn ant (1 - 1-dose 75+ series) 12/20/2035 Pneumococcal Vaccine Aged Out No long er eligible based on patient's age to complete this topic RSV Ped < 20 months Aged Out No longe r eligible based on patient's age to complete this topic Care Teams Nuclear Operations Specialist Relationship Specialty Start Date End Date Jaleel Boswell MD [address] [place] [id number] PCP - General Geriatric Medicine 12/12/22
[2024-04-30 07:43] LABS: MANUAL DIFF FLAG NO
[2024-04-30 08:13] LABS: Basophils Percent Auto 0.5 % (0-2); Eosinophils Absolute Auto 0.2 X10*3/uL (0.0-0.4); Eosinophils Percent Auto 2.5 % (0-4); Hematocrit 52.9 % (42.0-52.0); Hemoglobin 17.7 g/dl (14.0-18.0); Imm Gran Abs Auto 0.01 X10*3/uL (0.00-0.03); Imm Gran Pct Auto 0.2 % (0.0-0.4); Lymphocytes Percent Auto 15.6 % (20-40); Mean Corpuscular HGB Conc 33.5 g/dl (31.0-36.0); Mean Corpuscular Hemoglobin 29.8 pg (27.0-33.0); Mean Corpuscular Volume 89.1 fL (80.0-98.0); Mean Platelet Volume 10.6 fL (9.4-12.4); Monocytes Absolute Auto 0.4 X10*3/uL (0.1-1.2); Neutrophils Absolute Auto 4.9 x10*3/uL (2.0-8.3); Neutrophils Percent Auto 75.2 % (45-73); Platelet Count 203 X10*3/uL (160-400); Red Blood Count 5.94 X10*6/uL (4.60-5.80); Red Cell Distribution Width 13.2 % (11.0-16.0); White Blood Count 6.5 X10*3/uL (4.8-10.8)
[2024-04-30 08:57] LABS: Alanine Aminotransferase 29 U/L (0-40); Alkaline Phosphatase 84 U/L (39-117); Anion Gap 12 (12-20); Aspartate Amino Transferase 23 U/L (5-37); Bilirubin Total 0.8 mg/dL (0.0-1.0); Blood Urea Nitrogen 12 mg/dL (9-16); Calcium 9.2 mg/dL (8.4-10.2); Carbon Dioxide 29 mmol/L (22-29); Chloride 103 mmol/L (96-108); Cholesterol 213 mg/dL (<200); Estimated Glomerular Filt Rate 54; Glucose Random 100 mg/dL (60-115); HDL Cholesterol 37 mg/dL (>40); LDL Cholesterol Calculated 153 mg/dL (<100); Potassium 3.8 mmol/L (3.3-5.1); Sodium 140 mmol/L (135-145); Total Protein 6.9 g/dL (6.5-8.0); Triglycerides 117 mg/dL (<150)
[2024-04-30 09:32] LABS: Prostate Specific Antigen 1.64 ng/mL (<0.05-4.0)
[2024-05-02 07:44] LABS: Lyme Abs Screen <0.90 index
== END 2024-04-30 07:35 | disposition home or self-care (01) ==
LOC: HO.LAB 07:34
PROVIDERS: PCP Internal Medicine Geriatric Medicine; Visit Provider Internal Medicine Geriatric Medicine
DX: Z00.00 Encounter for general adult medical examination without abnormal findings (principal); R03.0 Elevated blood-pressure reading, without diagnosis of hypertension; E78.00 Pure hypercholesterolemia, unspecified; Z86.19 Personal history of other infectious and parasitic diseases; Z12.5 Encounter for screening for malignant neoplasm of prostate
CPT/HCPCS: 36415; 80053; 80061; 84153; 85025; 86617; 86618